=== PATIENT | female | born 1935 | race Caucasian/White ===

== ENCOUNTER 2020-05-06 17:38 | Emergency (ER) | payer MEDICARE, OTHER ==
[2020-05-06 18:50] LABS: #Lymphocytes 1.1 thou/uL (1.20-3.40); #Neutrophils 9.7 thou/uL (1.40-6.50); %Basophils 0.2 % (0.0-1.0); %Eosinophils 0.4 % (0.0-10.0); %Lymphocytes 9.2 % (21.0-51.0); %Monocytes 8.6 % (0.0-10.0); %Neutrophils 81.5 % (42.0-75.0); Hemoglobin 15.1 g/dL (12.0-16.0); Mean Corpuscular HGB CONC 32.9 g/dL (32.0-36.0); Mean Corpuscular Hemoglobin 30.9 pg (27.0-31.0); Mean Corpuscular Volume 94.1 fL (78.0-98.0); Mean Platelet Volume 7.3 fL (7.4-10.4); Platelet Count 284 thou/uL (130-400); RBC Distribution Width 12.2 % (11.5-14.5); Red Blood Cell (RBC) Count 4.89 mill/uL (4.20-5.40); White Blood Cell (WBC) Count 11.9 thou/uL (4.8-10.8)
--- NOTE | 2020-05-06 19:10 | RAD ---
PORTABLE CHEST: 05/06/20 PROVIDED CLINICAL HISTORY: Altered mental status. FINDINGS: Comparison 11/24/15. Cardiac and mediastinal silhouette is within normal limits for portable technique. Vascular calcifica tions noted involving the aortic arch. No focal consolidation, pleural fluid or pneumothorax apparent . IMPRESSION: No evidence for an acute cardiopulmonary process. POS: EDNA
[2020-05-06 19:14] LABS: ALT (SGPT) 11 U/L (8-55); AST (SGOT) 24 U/L (5-34); Albumin 3.5 g/dL (3.4-4.8); Alkaline Phosphatase 73 U/L (40-110); Anion Gap 16 mmol/L (10-20); BUN (Urea Nitrogen) 9 mg/dL (9.8-20.1); Bilirubin, Total 0.7 mg/dL (0.2-1.2); Calc. Creatinine Clearance 0 mL/min (70-130); Calcium 9.2 mg/dL (7.8-10.44); Carbon Dioxide 25 mmol/L (23-31); Chloride 102 mmol/L (98-107); Estimated GFR-MDRD 82; Glucose 112 mg/dL (83-110); Potassium 3.5 mmol/L (3.5-5.1); Protein, Total 7.5 g/dL (6.0-8.3); Sodium 139 mmol/L (136-145)
[2020-05-06 20:07] LABS: Bacteria/HPF 4+ HPF (None Seen); Bilirubin Negative (Negative); Blood, Urine 2+ (Negative); Clarity Turbid (Clear); Glucose, Urine (Dipstick) Normal (Negative); Ketone, Urine 40 mg/dL (Negative); Leukocyte 500 Leu/uL (Negative); Nitrite 2+ (Negative); Protein, Urine (Dipstick) 30 mg/dL (Neg-Trace); Squamous Epithelial 0-3 HPF (0-3); Urobilinogen Normal mg/dL (Less than 2); WBC/HPF Greater than 50 HPF (0-3); pH, Urine 5.5 (5.0-9.0)
[2020-05-06] MEDS ORDERED: Cephalexin 250 MG CAP ONE (20:30)
== END 2020-05-06 22:46 | disposition home or self-care (01) ==
LOC: ERS 17:38
DX: N39.0 Urinary tract infection, site not specified (principal)
CPT/HCPCS: 51701; 71045; 80053; 81003; 81015; 83605; 85025; 87077; 87086; 87186; 93005

== ENCOUNTER 2020-05-08 06:42 | Inpatient (IN) | payer MEDICARE, OTHER ==
[2020-05-08 07:35] LABS: #Eosinphils 0.2 thou/uL (0.0-0.7); #Lymphocytes 1.9 thou/uL (1.20-3.40); #Monocytes 1.1 thou/uL (0.11-0.59); #Neutrophils 7.7 thou/uL (1.40-6.50); %Basophils 0.4 % (0.0-1.0); %Eosinophils 1.9 % (0.0-10.0); %Lymphocytes 17.6 % (21.0-51.0); %Neutrophils 70.2 % (42.0-75.0); Hemoglobin 14.7 g/dL (12.0-16.0); Mean Corpuscular HGB CONC 32.6 g/dL (32.0-36.0); Mean Corpuscular Hemoglobin 30.8 pg (27.0-31.0); Mean Corpuscular Volume 94.4 fL (78.0-98.0); Mean Platelet Volume 7.4 fL (7.4-10.4); Platelet Count 322 thou/uL (130-400); RBC Distribution Width 12.3 % (11.5-14.5); Red Blood Cell (RBC) Count 4.77 mill/uL (4.20-5.40); White Blood Cell (WBC) Count 10.9 thou/uL (4.8-10.8)
[2020-05-08] MEDS ORDERED: cefTRIAXone\\ROCEPHIN 2 GM VIAL ONE (07:47)
[2020-05-08] MEDS ORDERED: Boostrix 0.5 ML (Tdap) VIAL ONE (07:47)
[2020-05-08] MEDS ORDERED: Bacitracin 1 PK ONE (07:47)
[2020-05-08 08:00] LABS: ALT (SGPT) 13 U/L (8-55); AST (SGOT) 25 U/L (5-34); Albumin 3.2 g/dL (3.4-4.8); Alkaline Phosphatase 61 U/L (40-110); Anion Gap 15 mmol/L (10-20); BUN (Urea Nitrogen) 12 mg/dL (9.8-20.1); Bilirubin, Total 0.6 mg/dL (0.2-1.2); Calc. Creatinine Clearance 0 mL/min (70-130); Calcium 8.7 mg/dL (7.8-10.44); Carbon Dioxide 23 mmol/L (23-31); Chloride 102 mmol/L (98-107); Estimated GFR-MDRD 82; Globulin 3.8 g/dL (2.4-3.5); Glucose 99 mg/dL (83-110); Potassium 3.8 mmol/L (3.5-5.1); Sodium 136 mmol/L (136-145)
[2020-05-08 08:01] LABS: Bilirubin Negative (Negative); Blood, Urine 1+ (Negative); Clarity Turbid (Clear); Glucose, Urine (Dipstick) Normal (Negative); Ketone, Urine Negative (Negative); Leukocyte 500 Leu/uL (Negative); Nitrite Negative (Negative); Protein, Urine (Dipstick) 30 mg/dL (Neg-Trace); Specific Gravity, Urine 1.025 (1.002-1.036); Squamous Epithelial 0-3 HPF (0-3); WBC/HPF Greater than 50 HPF (0-3)
[2020-05-08 08:02] LABS: Bacteria/HPF 1+ HPF (None Seen)
--- NOTE | 2020-05-08 08:33 | RAD ---
PORTABLE CHEST 1 VIEW: Date: 05/08/2020 Time: 0730 hours HISTORY: Urinary tract infection. COMPARISON: 05/06/2020. FINDINGS/IMPRESSION: The heart size is borderline. The aorta is tortuous. The lungs are expanded without lobar consolidati on, pneumothoraces, or large effusions. A small right pleural effusion may be present. POS: MZA
[2020-05-08] MEDS ORDERED: Aspirin 325 MG TAB ONE (08:34)
[2020-05-08] MEDS ORDERED: Ondansetron PF 4 MG/2 ML Vial IVP PRN (09:33)
[2020-05-08] MEDS ORDERED: ALPRAZolam 0.25 MG TAB PO PRN (09:33)
[2020-05-08] MEDS ORDERED: Bisacodyl 10 MG SUPP PR PRN (09:33)
[2020-05-08] MEDS ORDERED: Acetaminophen 325 MG TAB PO PRN (09:33)
[2020-05-08] MEDS ORDERED: Senokot S 8.6-50 MG TAB PO PRN (09:33)
[2020-05-08] MEDS ORDERED: Guaifenesin DM 100-10/5 ML UDCUP PO PRN (09:33)
--- NOTE | 2020-05-08 11:26 | HP ---
REASON FOR ADMISSION: Recurrent falls, urinary tract infection, noncompliant with medication, multiple sores on the bottom with unable to care for herself at home. HISTORY OF PRESENTING ILLNESS: The patient is unable to recall exactly why she was brought to the hospital. She was apparently brought to emergency room on the with complaints of confusion, increased frequency, and incontinence of urine. She was also falling multiple times. Initial workup in the ER on the showed urinary tract infection. This was sensitive to all antibiotics with E coli growing. The patient was given a prescription for Keflex and was sent home with the patient's niece. The niece had some questions about her not caring for her and APS complaint has been registered. The patient continued to fall after the niece dropped her back to her home. This morning, she was confused and she was not comfortable with the way she looked at home and brought her here. The patient currently is oriented and knows that she is at [facility]. She mobilizes with help here in the ER. She is also tolerating oral diet. She is not fully oriented as to know what happened at home. PAST MEDICAL AND SURGICAL HISTORY: History of mild hypertension, appendectomy, urinary tract infection diagnosed recently, likely underlying dementia with sundowning. ALLERGIES: ALLERGIC TO CIPROFLOXACIN. CURRENT MEDICATIONS: Keflex. PERSONAL HISTORY: Does not abuse alcohol or drugs. No history of smoking. She lives with her . FAMILY HISTORY: Brother has history of coronary artery disease with stents. The patient has two children and herself and they are not in touch with them. CODE STATUS: Full. I have confirmed this with the patient. Her power of collections attorney is Ms. Pennington, her niece. REVIEW OF SYSTEMS: CONSTITUTIONAL: Negative for weight loss or gain, ability to conduct usual activities. SKIN: Negative for rash, itching. EYES: Negative for double vision, pain. ENT/MOUTH: Negative for nose bleeding, neck stiffness, pain, tenderness. CARDIOVASCULAR: Negative for palpitations, dyspnea on exertion, orthopnea. RESPIRATORY: Negative for shortness of breath, wheezing, cough, hemoptysis, fever or night sweats. GASTROINTESTINAL: Negative for poor appetite, abdominal pain, heartburn, nausea, vomiting, constipation, or diarrhea. GENITOURINARY: Negative for urgency, frequency, dysuria, nocturia. MUSCULOSKELETAL: Negative for pain, swelling. NEUROLOGIC/PSYCHIATRIC: Negative for anxiety, depression. ALLERGY/IMMUNOLOGIC: Negative for skin rash, bleeding tendency. PHYSICAL EXAMINATION: GENERAL: The patient is an 84-year-old female who is currently not in any acute distress. VITAL SIGNS: Blood pressure 148/74, pulse 64 per minute, respiratory rate 16 per minute, temperature 98 degrees Fahrenheit, saturating 95% on room air. NECK: Supple. No elevated JVD. HEENT: Eyes; extraocular muscles intact. Pupils are reacting to light. Oral cavity, mucous membranes are dry. No exudates or congestion. CARDIOVASCULAR SYSTEM: S1 and S2 heard. Regular rhythm. RESPIRATORY SYSTEM: Air entry 1+ bilateral. No rales or rhonchi. ABDOMEN: Soft. Bowel sounds heard. No tenderness, rigidity, or guarding. EXTREMITIES: No peripheral edema or calf tenderness. VASCULAR SYSTEM: Peripheral pulses 1+ bilateral. No ischemic ulcerations or gangrene. CENTRAL NERVOUS SYSTEM: No gross focal deficits noted. The patient is alert, awake, and fairly oriented given her age of 84 years. PSYCHIATRIC SYSTEM: No obvious hallucinations or delusions at present. LABS: Urine culture drawn on the is growing E coli sensitive to all organism. White count of 10, H and H 14 and 45, platelet count 322 with 70% neutrophils. Electrolytes stable. MCV is 94. BUN is 12, creatinine 0.6, serum glucose 99. LFTs are within normal limits. BNP is 39. Albumin 3.2. Chest x-ray done shows no acute cardiopulmonary abnormalities. CLINICAL IMPRESSION AND PLAN: The patient will be admitted to medical floor for recurrent falls, unable to take her medications at home for urinary tract infection, failure to thrive, likely underlying dementia with sundowning. We will also obtain Case Management consultation for possible placement if she agrees. She currently does not want to go. She will be on ceftriaxone for today and will be switched over to oral medications in the morning. Gentle hydration with normal saline at 80 mL/hour. Xanax p.r.n. for anxiety. I have given complete updates to the patient's niece, Ms. Pennington. A COVID test has been ordered and we will await full results. Blood cultures have been obtained. We will continue to closely monitor her on medical floor. Case Management consultation will also be requested with regard to APS complaint that the family members have raised to follow up on the same. Job ID: [id number]
[2020-05-08 12:17] VITALS: BMI 23.5
[2020-05-08 14:43] LABS: SARS-CoV-2 MS2 Positive; SARS-CoV-2 N Gene Negative; SARS-CoV-2 S Gene Negative; SARS-CoV-2 by NAA Not Detected (NotDetected); SARS-CoV-2 orf1ab Negative
[2020-05-08] MEDS: Sodium Chloride 0.9% 1,000 ML IV SCH (15:47)
[2020-05-08] MEDS: Famotidine 20 MG TAB PO SCH (21:01)
[2020-05-09 06:20] LABS: #Basophils 0.1 thou/uL (0.0-0.2); #Eosinphils 0.2 thou/uL (0.0-0.7); #Lymphocytes 1.9 thou/uL (1.20-3.40); #Monocytes 1.3 thou/uL (0.11-0.59); #Neutrophils 7.2 thou/uL (1.40-6.50); %Basophils 0.5 % (0.0-1.0); %Eosinophils 2.2 % (0.0-10.0); %Lymphocytes 17.7 % (21.0-51.0); %Monocytes 11.8 % (0.0-10.0); %Neutrophils 67.8 % (42.0-75.0); Hemoglobin 13.4 g/dL (12.0-16.0); Mean Corpuscular HGB CONC 31.9 g/dL (32.0-36.0); Mean Corpuscular Hemoglobin 30.1 pg (27.0-31.0); Mean Corpuscular Volume 94.5 fL (78.0-98.0); Mean Platelet Volume 7.8 fL (7.4-10.4); Platelet Count 292 thou/uL (130-400); RBC Distribution Width 12.2 % (11.5-14.5); Red Blood Cell (RBC) Count 4.43 mill/uL (4.20-5.40); White Blood Cell (WBC) Count 10.7 thou/uL (4.8-10.8)
[2020-05-09 06:46] LABS: Anion Gap 10 mmol/L (10-20); BUN (Urea Nitrogen) 6 mg/dL (9.8-20.1); Calc. Creatinine Clearance 79 mL/min (70-130); Carbon Dioxide 24 mmol/L (23-31); Chloride 104 mmol/L (98-107); Estimated GFR-MDRD Greater than 90; Glucose 98 mg/dL (83-110); Potassium 3.4 mmol/L (3.5-5.1); Sodium 135 mmol/L (136-145)
[2020-05-09] MEDS: Sodium Chloride 0.9% 1,000 ML IV SCH (07:27)
[2020-05-09] MEDS: cefTRIAXone\\ROCEPHIN 1 GM in Sodium Chloride 0.9% 100 ML IVPB SCH (08:05)
[2020-05-09] MEDS: Famotidine 20 MG TAB PO SCH ×2 (08:06→20:48)
[2020-05-09] MEDS: Enoxaparin Sodium 40 MG/0.4 ML SYRINGE SC SCH (08:06)
--- NOTE | 2020-05-09 15:59 | PDOC.HOSPP ---
- Subjective Encounter Date: 05/09/20 Encounter Time: 08:30 Subjective: Patient seen for follow-up regarding urinary tract infection. She denies chest pain or shortness of breath. She denies any urinary symptoms. - Objective Vital Signs & Weight: Vital Signs (12 hours) Temp Pulse Resp BP Pulse Ox 05/09/20 12:26 165/83 H 05/09/20 07:30 98.3 F 56 L 16 162/80 H 93 L 05/09/20 04:07 98.0 F 66 16 166/77 H 96 Weight Weight 154 lb 12.232 oz I&O: 05/08/20 05/09/20 05/10/20 06:59 06:59 06:59 Intake Total 1920 Output Total 1300 Balance 620 Result Diagrams: 05/09/20 05:33 05/09/20 05:33 Additional Labs: Labs and MAR reviewed by il Hospitalist ROS - Review of Systems Cardiovascular: denies: chest pain, palpitations, orthopnea, paroxysmal noc. dyspnea, edema, light headedness Gastrointestinal: denies: nausea, vomiting, abdominal pain, diarrhea, constipation, melena, hematochezia Genitourinary: denies: dysuria, frequency, incontinence, hematuria, retention - Medication Medications: Active Medications Generic Name Dose Route Start Last Admin Trade Name Freq PRN Reason Stop Dose Admin Acetaminophen 650 mg 05/08/20 09:33 05/08/20 18:45 Acetaminophen 325 Mg Tab PO 650 mg Q4H PRN Administration Headache/Fever/Mild Pain (1-3) Alprazolam 0.25 mg 05/08/20 09:33 05/08/20 21:02 Alprazolam 0.25 Mg Tab PO 0.25 mg BIDPRN PRN Administration Anxiety Enoxaparin Sodium 40 mg 05/09/20 09:00 05/09/20 08:06 Enoxaparin Sodium 40 Mg/0.4 Ml Syringe SC 40 mg 0900 FR[place] Administration Famotidine 20 mg 05/08/20 21:00 05/09/20 08:06 Famotidine 20 Mg Tab PO 20 mg BID FRANCE Administration Sodium Chloride 1,000 mls @ 80 mls/hr 05/08/20 09:33 05/09/20 07:27 Normal Saline 0.9% IV 05/09/20 16:46 Not Given .[id number] FRANCE Ceftriaxone Sodium 1 gm/ 100 mls @ 200 mls/hr 05/09/20 08:00 05/09/20 08:05 Sodium Chloride IVPB 100 mls Q24HR FR[place] Administration Sodium Chloride 10 ml 05/08/20 21:00 05/09/20 08:07 Flush - Normal Saline 10 Ml Syringe IVF Not Given Q12HR FRANCE - Exam General Appearance: awake alert Eye: anicteric sclera ENT: moist mucosa Neck: supple Heart: RRR Respiratory: CTAB Gastrointestinal: soft, non-tender Skin - other findings: Lesions as documented Psychiatric: normal affect, normal behavior, oriented to person Hosp A/P (1) UTI (urinary tract infection) Status: Acute (2) Acute metabolic encephalopathy Code(s): G93.41 - METABOLIC ENCEPHALOPATHY Status: Acute (3) Recurrent falls Code(s): R29.6 - REPEATED FALLS Status: Acute - Plan Continue ceftriaxone, follow urine culture. Unclear how much of her presentation is secondary to underlying dementia. PT/OT rogelio.
[2020-05-09] MEDS ORDERED: Haloperidol Lactate 5 MG/ML VIAL IM PRN (18:20)
[2020-05-10] MEDS: Famotidine 20 MG TAB PO SCH ×2 (08:32→20:03)
[2020-05-10] MEDS: cefTRIAXone\\ROCEPHIN 1 GM in Sodium Chloride 0.9% 100 ML IVPB SCH (08:32)
[2020-05-10] MEDS: Enoxaparin Sodium 40 MG/0.4 ML SYRINGE SC SCH (08:32)
--- NOTE | 2020-05-10 18:44 | PDOC.HOSPP ---
- Subjective Encounter Date: 05/10/20 Encounter Time: 11:00 Subjective: Patient seen for follow-up regarding urinary tract infection. She is less agitated today. - Objective Vital Signs & Weight: Vital Signs (12 hours) Temp Pulse Resp BP Pulse Ox 05/10/20 16:26 100.5 F H 77 16 155/85 H 92 L 05/10/20 11:17 98.0 F 83 16 154/92 H 94 L 05/10/20 07:25 98.2 F 83 16 154/86 H 91 L Weight Admit Weight 154 lb 12.232 oz Weight 154 lb 12.232 oz I&O: 05/09/20 05/10/20 05/11/20 06:59 06:59 06:59 Intake Total 1920 400 Output Total 1300 100 Balance 620 300 Result Diagrams: 05/09/20 05:33 05/09/20 05:33 Additional Labs: I reviewed patient's labs and MAR Hospitalist ROS - Review of Systems Constitutional: denies: fever, chills, sweats, weakness, malaise Respiratory: denies: cough, shortness of breath, SOB with excertion, pleuritic pain Cardiovascular: denies: chest pain, palpitations, orthopnea, paroxysmal noc. dyspnea, edema, light headedness - Medication Medications: Active Medications Generic Name Dose Route Start Last Admin Trade Name Freq PRN Reason Stop Dose Admin Acetaminophen 650 mg 05/08/20 09:33 05/08/20 18:45 Acetaminophen 325 Mg Tab PO 650 mg Q4H PRN Administration Headache/Fever/Mild Pain (1-3) Alprazolam 0.25 mg 05/08/20 09:33 05/08/20 21:02 Alprazolam 0.25 Mg Tab PO 0.25 mg BIDPRN PRN Administration Anxiety Enoxaparin Sodium 40 mg 05/09/20 09:00 05/10/20 08:32 Enoxaparin Sodium 40 Mg/0.4 Ml Syringe SC 40 mg 0900 FR[place] Administration Famotidine 20 mg 05/08/20 21:00 05/10/20 08:32 Famotidine 20 Mg Tab PO 20 mg BID FRANCE Administration Haloperidol Lactate 5 mg 05/09/20 18:20 05/09/20 19:35 Haloperidol Lactate 5 Mg/Ml Vial IM 5 mg Q8H PRN Administration Agitation Ceftriaxone Sodium 1 gm/ 100 mls @ 200 mls/hr 05/09/20 08:00 05/10/20 08:32 Sodium Chloride IVPB 100 mls Q24HR FRANCE Administration Sodium Chloride 10 ml 05/08/20 21:00 05/10/20 08:37 Flush - Normal Saline 10 Ml Syringe IVF 10 ml Q12HR FRANCE Administration - Exam General Appearance: awake alert Eye: anicteric sclera ENT: moist mucosa Neck: supple Heart: RRR Respiratory: CTAB Gastrointestinal: soft, non-tender Skin: no rashes Psychiatric: normal affect, normal behavior Hosp A/P (1) UTI (urinary tract infection) Status: Acute (2) Acute metabolic encephalopathy Code(s): G93.41 - METABOLIC ENCEPHALOPATHY Status: Acute (3) Recurrent falls Code(s): R29.6 - REPEATED FALLS Status: Acute - Plan Continue ceftriaxone, follow blood culture. Final urine culture is negative. Unclear how much of her presentation is secondary to underlying dementia. PT/OT eval. Patient may need placement.
[2020-05-11 06:01] LABS: #Eosinphils 0.1 thou/uL (0.0-0.7); #Lymphocytes 1.4 thou/uL (1.20-3.40); #Monocytes 1.8 thou/uL (0.11-0.59); #Neutrophils 9.6 thou/uL (1.40-6.50); %Basophils 0.1 % (0.0-1.0); %Eosinophils 0.4 % (0.0-10.0); %Lymphocytes 10.7 % (21.0-51.0); %Monocytes 13.8 % (0.0-10.0); Hemoglobin 14.5 g/dL (12.0-16.0); Mean Corpuscular HGB CONC 32.8 g/dL (32.0-36.0); Mean Corpuscular Volume 94.5 fL (78.0-98.0); Mean Platelet Volume 6.9 fL (7.4-10.4); Platelet Count 328 thou/uL (130-400); RBC Distribution Width 12.1 % (11.5-14.5); Red Blood Cell (RBC) Count 4.68 mill/uL (4.20-5.40); White Blood Cell (WBC) Count 12.8 thou/uL (4.8-10.8)
[2020-05-11 06:20] LABS: Anion Gap 17 mmol/L (10-20); BUN (Urea Nitrogen) 10 mg/dL (9.8-20.1); Calc. Creatinine Clearance 69 mL/min (70-130); Calcium 8.3 mg/dL (7.8-10.44); Carbon Dioxide 19 mmol/L (23-31); Chloride 98 mmol/L (98-107); Estimated GFR-MDRD 86; Glucose 112 mg/dL (83-110); Potassium 3.2 mmol/L (3.5-5.1); Sodium 131 mmol/L (136-145)
[2020-05-11] MEDS: Famotidine 20 MG TAB PO SCH ×2 (08:33→21:48)
[2020-05-11] MEDS: Enoxaparin Sodium 40 MG/0.4 ML SYRINGE SC SCH (08:33)
[2020-05-11] MEDS: cefTRIAXone\\ROCEPHIN 1 GM in Sodium Chloride 0.9% 100 ML IVPB SCH (08:33)
--- NOTE | 2020-05-11 17:50 | PDOC.HOSPP ---
- Subjective Encounter Date: 05/11/20 Encounter Time: 09:00 Subjective: Patient seen for follow-up regarding urinary tract infection. She denies any complaints. Reports that she slept well. - Objective Vital Signs & Weight: Vital Signs (12 hours) Temp Pulse Resp BP Pulse Ox 05/11/20 15:35 99.2 F 99 14 110/61 93 L 05/11/20 11:30 98.1 F 87 14 129/80 93 L 05/11/20 07:05 99.4 F 84 16 126/84 94 L Weight Admit Weight 154 lb 12.232 oz Weight 154 lb 12.232 oz I&O: 05/10/20 05/11/20 05/12/20 06:59 06:59 06:59 Intake Total 400 1450 Output Total 100 600 Balance 300 850 Result Diagrams: 05/11/20 05:49 05/11/20 05:49 Additional Labs: Labs and MAR reviewed by tx Hospitalist ROS - Review of Systems Cardiovascular: denies: chest pain, palpitations, orthopnea, paroxysmal noc. dyspnea, edema, light headedness Genitourinary: denies: dysuria, frequency, incontinence, hematuria, retention Skin: denies: rash, lesions, lucie, bruising - Medication Medications: Active Medications Generic Name Dose Route Start Last Admin Trade Name Freq PRN Reason Stop Dose Admin Acetaminophen 650 mg 05/08/20 09:33 05/08/20 18:45 Acetaminophen 325 Mg Tab PO 650 mg Q4H PRN Administration Headache/Fever/Mild Pain (1-3) Alprazolam 0.25 mg 05/08/20 09:33 05/08/20 21:02 Alprazolam 0.25 Mg Tab PO 0.25 mg BIDPRN PRN Administration Anxiety Enoxaparin Sodium 40 mg 05/09/20 09:00 05/11/20 08:33 Enoxaparin Sodium 40 Mg/0.4 Ml Syringe SC 40 mg 0900 [place] Administration Famotidine 20 mg 05/08/20 21:00 05/11/20 08:33 Famotidine 20 Mg Tab PO 20 mg BID FRANCE Administration Haloperidol Lactate 5 mg 05/09/20 18:20 05/09/20 19:35 Haloperidol Lactate 5 Mg/Ml Vial IM 5 mg Q8H PRN Administration Agitation Ceftriaxone Sodium 1 gm/ 100 mls @ 200 mls/hr 05/09/20 08:00 05/11/20 08:33 Sodium Chloride IVPB 100 mls Q24HR [place] Administration Sodium Chloride 10 ml 05/08/20 21:00 05/11/20 08:33 Flush - Normal Saline 10 Ml Syringe IVF 10 ml Q12HR FRANCE Administration - Exam General Appearance: awake alert Eye: anicteric sclera ENT: moist mucosa Neck: supple Heart: RRR Respiratory: CTAB Gastrointestinal: soft, non-tender Skin: no rashes Psychiatric: normal affect, normal behavior Hosp A/P (1) UTI (urinary tract infection) Status: Acute (2) Acute metabolic encephalopathy Code(s): G93.41 - METABOLIC ENCEPHALOPATHY Status: Acute (3) Recurrent falls Code(s): R29.6 - REPEATED FALLS Status: Acute - Plan Continue ceftriaxone, follow blood culture. PT/OT eval. Patient may need placement.
[2020-05-12 05:07] LABS: #Lymphocytes 1.1 thou/uL (1.20-3.40); #Monocytes 1.6 thou/uL (0.11-0.59); #Neutrophils 9.9 thou/uL (1.40-6.50); %Eosinophils 0.2 % (0.0-10.0); %Lymphocytes 8.7 % (21.0-51.0); %Monocytes 12.3 % (0.0-10.0); %Neutrophils 78.7 % (42.0-75.0); Hemoglobin 14.1 g/dL (12.0-16.0); Mean Corpuscular HGB CONC 33.1 g/dL (32.0-36.0); Mean Corpuscular Volume 93.6 fL (78.0-98.0); Mean Platelet Volume 6.7 fL (7.4-10.4); Platelet Count 390 thou/uL (130-400); RBC Distribution Width 12.1 % (11.5-14.5); Red Blood Cell (RBC) Count 4.54 mill/uL (4.20-5.40); White Blood Cell (WBC) Count 12.6 thou/uL (4.8-10.8)
[2020-05-12 05:24] LABS: Anion Gap 16 mmol/L (10-20); BUN (Urea Nitrogen) 21 mg/dL (9.8-20.1); Calc. Creatinine Clearance 61 mL/min (70-130); Calcium 8.7 mg/dL (7.8-10.44); Carbon Dioxide 23 mmol/L (23-31); Chloride 98 mmol/L (98-107); Estimated GFR-MDRD 76; Glucose 119 mg/dL (83-110); Potassium 3.5 mmol/L (3.5-5.1); Sodium 133 mmol/L (136-145)
[2020-05-12] MEDS: cefTRIAXone\\ROCEPHIN 1 GM in Sodium Chloride 0.9% 100 ML IVPB SCH (09:32)
[2020-05-12] MEDS: Enoxaparin Sodium 40 MG/0.4 ML SYRINGE SC SCH (09:32)
[2020-05-12] MEDS: Famotidine 20 MG TAB PO SCH (09:38)
--- NOTE | 2020-05-12 11:01 | PDOC.DS.DS ---
Provider - Provider Date of Admission: 05/08/20 09:33 Date of Discharge: 05/12/20 Admitting Provider: Reji Ribeiro MD Primary Care Physician: JOSE M LIN Course - Hospital Course Hospital Course: Discharge diagnosis: 1. Urinary tract infection 2. Acute metabolic encephalopathy 3. Recurrent falls Hospital course: Patient is a pleasant 84-year-old lady who was admitted to the hospital on May 08, 2020 for acute metabolic encephalopathy secondary to urinary tract infection. Patient was also having recurrent falls. She was treated with intravenous ceftriaxone. Urine culture from May 08 did not show any growth. Urine culture from May 06 grew pansensitive E. coli. She is being transitioned to cefdinir prior to discharge. She was evaluated by therapy services. She has been recommended prison. She is being discharged to prison facility. Many thanks for allowing me to participate in your patient's care. Please feel free to contact me with any questions or concerns. Final blood cultures are pending at the time of this dictation, preliminary blood cultures are negative after 48 hours. She is advised to follow-up with her primary care provider for final blood culture results. Discharge destination: [facility] Total amount of time spent coordinating this discharge: 32 minutes Resuscitation Status: 05/08/20 09:26 Resuscitation Status Routine Resuscitation Status: FULL: Full Resuscitation Discussed with: POA: - Labs Lab Results: 05/12/20 04:53 05/12/20 04:53 Abnormal Lab Results - Last 48 hrs 05/11/20 05:49: Sodium 131 L, Potassium 3.2 L, Carbon Dioxide 19 L 05/11/20 05:49: WBC 12.8 H, MPV 6.9 L, Lymphocytes % 10.7 L, Monocytes % 13.8 H, Neutrophils # 9.6 H, Monocytes # 1.8 H 05/12/20 04:53: Sodium 133 L, BUN 21 H 05/12/20 04:53: WBC 12.6 H, MPV 6.7 L, Neutrophils % 78.7 H, Lymphocytes % 8.7 L, Monocytes % 12.3 H, Neutrophils # 9.9 H, Lymphocytes # 1.1 L, Monocytes # 1.6 H Microbiology - Entire Visit 05/08/20 07:41 Venous blood - Right Hand Blood Culture - Preliminary NO GROWTH AT 48 HOURS 05/08/20 07:17 Venous blood - Left Arm Blood Culture - Preliminary NO GROWTH AT 48 HOURS 05/08/20 Unknown Urine Straight Catheter Urine Culture - Final NO GROWTH AT 48 HOURS - Physical Exam Vitals: Vital Signs (12 hours) Temp Pulse Resp BP Pulse Ox 05/12/20 07:45 98.3 F 85 16 147/95 H 92 L 05/12/20 03:36 98.7 F 82 16 119/70 92 L 05/11/20 23:32 98.2 F 86 16 108/67 92 L Weight Admit Weight 154 lb 12.232 oz Weight 154 lb 12.232 oz Physical Exam: The patient was seen and examined on the day of discharge. Patient denies chest pain or shortness of breath. Vital signs are stable. S1 and S2 are heard. Lungs are clear to auscultation bilaterally. Problem - Problem (1) UTI (urinary tract infection) Status: Acute (2) Acute metabolic encephalopathy Code(s): G93.41 - METABOLIC ENCEPHALOPATHY Status: Acute (3) Recurrent falls Code(s): R29.6 - REPEATED FALLS Status: Acute Plan - Discharge Medications Prescriptions: Cefdinir [Omnicef] 300 mg PO BID #20 cap Home Medications: Medication Instructions Recorded Confirmed Type Cefdinir [Omnicef] 300 mg PO BID #20 cap 05/12/20 Rx Allergies: ciprofloxacin [From Cipro] Adverse Reaction (Verified 08/31/19 23:55) ciprofloxacin HCl [From Cipro] Adverse Reaction (Verified 08/31/19 23:55) - Discharge Instructions Discharge Instructions:: Follow-up with your primary care provider for final blood culture result. Activity:: Activity as Tolerated Nourishment:: Heart Healthy Diet - Follow up Plan Referrals: TED VELASQUEZ & [Primary Care Provider] - 7 Days [facility] Quality - Care Measures CORE MEASURES:: N/A
[2020-05-12 17:14] VITALS: BP 134/89; TEMP 99.1
--- NOTE | 2020-05-14 14:36 | EKG ---
Test Reason : AMS Blood Pressure : / mmHG Vent. Rate : 061 BPM Atrial Rate : 061 BPM P-R Int : 216 ms QRS Dur : 086 ms QT Int : 416 ms P-R-T Axes : 037 -53 045 degrees QTc Int : 418 ms Sinus rhythm with 1st degree A-V block Left anterior fascicular block Nonspecific ST and T wave abnormality Abnormal ECG Confirmed by DEE CHU M.D. ([id number]), art editor HATTIE SINGH ([id number]) on 05/14/2020 2:35:52 PM Referred By: Confirmed By:DEE CHU M.D.
== END 2020-05-12 18:02 | DRG 689 ==
LOC: ERS 06:42 → ERHOLD 08:32 → OBSVTOIN 09:33 → SURG B 11:29
PROVIDERS: ADMIT Internal Medicine; ATTEND Internal Medicine
DX: N39.0 Urinary tract infection, site not specified (principal); G93.41 Metabolic encephalopathy; F05 Delirium due to known physiological condition; Z20.828 Contact with and (suspected) exposure to other viral communicable diseases; R29.6 Repeated falls; I10 Essential (primary) hypertension; F03.90 Unspecified dementia, unspecified severity, without behavioral disturbance, psychotic disturbance, mood disturbance, and anxiety; Z90.49 Acquired absence of other specified parts of digestive tract; Z88.1 Allergy status to other antibiotic agents; Z91.14 Patient's other noncompliance with medication regimen
CPT/HCPCS: 36415; 51701; 71045; 80048; 80053; 81003; 81015; 83605; 83880; 84484; 85025; 87040; 87077; 87086; 87186; 87635; 90471; 90715; 93005; 96365; 96366; J0696; J1630; J1650; J3490; U0003